=== PATIENT | male | born 1980 | race Hispanic/Latino ===

== ENCOUNTER 2022-07-20 12:56 | Emergency (ER) | payer BC, OTHER ==
[~2022-07-20] VITALS: Ht 167.6 cm; Wt 124.7 kg
[2022-07-20] MEDS ORDERED: ULTRAM 50MG50 MG PO (14:34)
[2022-07-20] MEDS ORDERED: PREDNISONE50 MG PO (14:36)
[2022-07-20] MEDS ORDERED: CYCLOBENZAPRINE10 MG PO (14:37)
[2022-07-20] MEDS ORDERED: PREDNISONE 20 MG TAB PO ONE (14:45)
[2022-07-20] MEDS ORDERED: PREDNISONE 20 MG TAB ONE (14:55)
== END 2022-07-20 14:48 | disposition home or self-care (01) ==
LOC: FSED 13:11
DX: S39.012A Strain of muscle, fascia and tendon of lower back, initial encounter (principal); M47.817 Spondylosis without myelopathy or radiculopathy, lumbosacral region; X50.1XXA Overexertion from prolonged static or awkward postures, initial encounter
CPT/HCPCS: 99283; J7512